=== PATIENT | female | born 1985 | race Hispanic/Latino ===

== ENCOUNTER 2017-08-08 16:12 | Emergency (ER) | payer SELFPAY ==
[~2017-08-08 16:12] MED LIST: ISOVUE-370 76%-LOCM 1 ML ONE; Iopamidol 370 76% 50 ML VIAL FS ONE
[2017-08-08 16:55] LABS: #Basophils 0.1 thou/uL (0.0-0.2); #Eosinphils 0.4 thou/uL (0.0-0.7); #Monocytes 0.5 thou/uL (0.11-0.59); #Neutrophils 5.4 thou/uL (1.40-6.50); %Eosinophils 4.9 % (0.0-10.0); %Lymphocytes 24.3 % (21.0-51.0); %Monocytes 5.8 % (0.0-10.0); Hemoglobin 14.1 g/dL (12.0-16.0); Mean Corpuscular HGB CONC 34.4 g/dL (32.0-36.0); Mean Corpuscular Hemoglobin 30.6 pg (27.0-31.0); Mean Corpuscular Volume 88.9 fL (78.0-98.0); Mean Platelet Volume 7.9 fL (7.4-10.4); Platelet Count 237 thou/uL (130-400); RBC Distribution Width 11.4 % (11.5-14.5); Red Blood Cell (RBC) Count 4.62 mill/uL (4.20-5.40); White Blood Cell (WBC) Count 8.4 thou/uL (4.8-10.8)
[2017-08-08 17:09] LABS: ALT (SGPT) 24 U/L (8-55); AST (SGOT) 22 U/L (5-34); Albumin 4.2 g/dL (3.5-5.0); Alkaline Phosphatase 71 U/L (40-150); Anion Gap 12 mmol/L (10-20); BUN (Urea Nitrogen) 9 mg/dL (7.0-18.7); Calc. Creatinine Clearance 0 mL/min (70-130); Carbon Dioxide 27 mmol/L (22-29); Chloride 105 mmol/L (98-107); Estimated GFR-MDRD 84; Glucose 97 mg/dL (70-105); Potassium 3.6 mmol/L (3.5-5.1); Protein, Total 7.2 g/dL (6.0-8.3); Sodium 140 mmol/L (136-145)
[2017-08-08] MEDS ORDERED: Morphine 10 MG/ML VIAL ONE (17:33)
[2017-08-08] MEDS ORDERED: Ondansetron HCl/PF 4 MG/2 ML Vial ONE (17:33)
[2017-08-08 18:00] LABS: Bilirubin Negative (Negative); Blood, Urine Moderate (Negative); Clarity CLEAR (Clear); Glucose, Urine (Dipstick) Negative (Negative); Leukocyte Small (Negative); Nitrite Negative (Negative); Protein, Urine (Dipstick) Negative (Neg-Trace); Specific Gravity, Urine 1.018 (1.002-1.036); Urobilinogen 0.2 mg/dL (0.2-1.0); pH, Urine 5.5 (5.0-9.0)
[2017-08-08 18:02] LABS: Bacteria/HPF None Seen HPF (None Seen); Hyaline Casts/LPF 0-3 HYALINE CAST LPF (0-3 Hyaline); Squamous Epithelial 0-3 HPF (0-3)
[2017-08-08 18:04] LABS: Pregnancy Test - Urine (BHCG) Negative (Negative); Pregu Control Background? CLEAR/WHITE (CLR/WHITE); Pregu Control Bar Appear? YES (CONTROL BAR); Specific Gravity 1.018 (1.002-1.036)
[2017-08-08] MEDS ORDERED: Ketorolac Tromethamine 30 MG/ML VIAL ONE (18:15)
--- NOTE | 2017-08-08 18:58 | ULT ---
ULTRASOUND GALLBLADDER RIGHT UPPER QUADRANT 08/08/17 HISTORY: Right upper quadrant pain. COMPARISON: None. FINDINGS: Real time mc scale and color evaluation of the right upper quadrant of the abdomen was performed. The visualized portions of the pancreas are unremarkable. Liver measures 15 cm in length. Gallbladder wall thickness is normal. No pericholecystic fluid. No cholelithiasis. No gallbladder dis tention. Sonographic Fernandez's sign is positive. Right kidney measures 10.3 x 4.2 x 5 cm without mass, hydronephrosis or abnormal calcifications. IMPRESSION: Unremarkable examination of the abdomen. No evidence of cholelithiasis or cholecystitis. POS: [facility]
--- NOTE | 2017-08-08 20:39 | CT ---
CT ABDOMEN AND PELVIS WITH CONTRAST: 08/08/17 HISTORY: Abdominal pain. COMPARISON: Gallbladder ultrasound same day. FINDINGS: Lung bases are clear. No pericardial effusion. Gallbladder is normal as well as the liver and spleen. The appendix is visualized and is normal. No dilated loops or large or small bowel. Low grade diverticular disease sigmoid colon without evidence of active inflammation. Mild dilatation of the gonadal vessels bilaterally. IMPRESSION: The aortoiliac contour is normal. No retroperitoneal adenopathy. No osseous abnormality. IMPRESSION: No acute intra-abdominal abnormality. Normal appendix. POS: [facility]
[2017-08-08] MEDS ORDERED: cefTRIAXone\\ROCEPHIN 2 GM VIAL ONE (21:15)
== END 2017-08-08 22:14 | disposition home or self-care (01) ==
LOC: ERS 16:12
DX: N39.0 Urinary tract infection, site not specified (principal); R10.11 Right upper quadrant pain
CPT/HCPCS: 36415; 74177; 76705; 80053; 81003; 81015; 81025; 83690; 85025; 87086; 96361; 96365; 96375; J0696; J1885; J2270; J2405

== ENCOUNTER 2018-05-14 09:40 | Outpatient (CLI) | payer OTHER ==
--- NOTE | 2018-05-14 10:35 | ULT ---
FUltrasound obstetrical complete: DATE: 05/14/2018 HISTORY: 33-year-old female Z34.82, encounter for supervision of otherwise normal in [facility] "Comments: Complete anatomy, size and dates and cervical length" FINDINGS: number:Sharif lie:Transverse with head to maternal left Maternal cervix:6.5 cm. Closed. Placenta:Posterior.. No placenta previa. Amniotic fluid: Subjectively normal. ARLEN was not measured. heart rate:142 bpm. The following anatomy is visualized without evidence of anomalies: Head, cerebellum, lateral ventricles, four-chamber heart, stomach, kidneys, cord insertion, bladder, cervical spine, thoracic spine, lumbar spine, sacrum, nose and lips, upper extremities, lower extreme venous, and three-vessel cord. biometry: BPD: 5.2 cm: 21 w 6 d HC: 19.0 cm: 21 w 2 d AC:16.1 cm: 21 w 2 d FL:3.6 cm: 21 w 3 d Average ultrasound age: 21 w 4 Estimated date of delivery: 09/20/2018 Estimated weight: 413 g +/- 60 g IMPRESSION: 1) 2nd trimester intrauterine gestation. 2) estimated gestational age of: 21 weeks 4 days 3) lie:Transverse 4) no anatomic abnormality identified.
== END 2018-05-14 09:41 | disposition home or self-care (01) ==
LOC: BICULT 09:40
PROVIDERS: ATTEND Family Medicine
DX: Z34.82 Encounter for supervision of other normal pregnancy, second trimester (principal); Z3A.21 21 weeks gestation of pregnancy
CPT/HCPCS: 76805

== ENCOUNTER 2018-09-03 02:03 | Day surgery (SDC) | payer OTHER ==
[2018-09-03 02:39] VITALS: BMI 34.0
[2018-09-03] MEDS ORDERED: hydrALAZINE 20 MG/ML VIAL SLOW IVP PRN (05:18)
--- NOTE | 2018-09-03 05:50 | ER ---
DATE OF SERVICE: 09/03/2018 TIME OF SERVICE: 05:15. PRESENTING COMPLAINT: Contractions at 37 weeks' gestation. HISTORY OF PRESENT ILLNESS: Ms. Paz is a 33-year-old, G3, P2, at 37 and 4 weeks gestation by stated DEDRA, who sees Dr. Jayant Arreguin. She presents complaining of contractions. She denies rupture of membranes. She reports active fetus. She presents for labor check. CONTINUOUS IMPROVEMENT CONSULTANT HISTORY: Antepartum record not present on the unit. The patient reports that she has had 2 previous spontaneous vaginal deliveries. Spontaneous vaginal delivery in 2009 involved with hemorrhage and spontaneous vaginal delivery in 2014 involved with -induced hypertension. Otherwise, she reports uncomplicated pregnancies. PAST MEDICAL HISTORY: None. PAST SURGICAL HISTORY: None. ALLERGIES: DENIES. MEDICATIONS: vitamins. SOCIAL HISTORY: Denies tobacco, alcohol or IV drug use. FAMILY HISTORY: Noncontributory. REVIEW OF SYSTEMS: Noncontributory. PHYSICAL EXAMINATION: GENERAL: female, resting comfortably. VITAL SIGNS: Pulse 65, blood pressure 122/71, temperature 97.6, and respirations 18. HEENT: Within normal limits. LUNGS: Clear to auscultation bilaterally. HEART: Regular rate and rhythm. ABDOMEN: Soft and nontender. No rebound or guarding. No CVA tenderness noted. Fundal height 37 cm. FHTs 120s to 140s. VULVA: Without lesions. VAGINA: Without discharge. CERVICAL EXAM: 225, -3, cephalic by RN. EXTREMITIES: No clubbing, cyanosis or edema. The patient was presented and had an initial category 1 heart rate tracing. She was allowed to walk for 2 hours and rechecked. At the end of 2 hours, she was noted to have an unchanged cervix. At this point in time, she reports that her contractions are gone from every 3 minutes to q.6 to 8 minutes. This was confirmed by electronic monitoring. IMPRESSION: 37 to 38 weeks gestation, category 1 heart rate tracing, no evidence of labor. PLAN: Discharge home. ER precautions. The patient is to keep scheduled followup with Dr. Arreguin today. Job ID: [id number]
== END 2018-09-03 05:20 | disposition home or self-care (01) ==
LOC: L&D/OP 02:03
PROVIDERS: ATTEND Family Medicine
DX: O47.1 False labor at or after 37 completed weeks of gestation (principal); Z3A.37 37 weeks gestation of pregnancy
CPT/HCPCS: 99283

== ENCOUNTER 2018-09-06 10:10 | Day surgery (SDC) | payer OTHER ==
[2018-09-06 10:58] VITALS: BMI 34.7
--- NOTE | 2018-09-06 13:15 | ULT ---
ULTRASOUND BIOPHYSICAL PROFILE: DATE: 09-06-18 HISTORY: 33-year-old female with abnormal nonstress test. FINDINGS: breathin tone: 2 movement: 2 Amniotic fluid volume: 2 hear rate: 149 bpm lie: Cephalic Placenta: Posterior ARLEN: 14 cm IMPRESSION: Normal biophysical profile score of 8/8, excluding the non-stress test. jn [] POS: [facility]
== END 2018-09-06 12:50 | disposition home or self-care (01) ==
LOC: L&D/OP 10:10
PROVIDERS: ATTEND Family Medicine
DX: O36.8130 Decreased fetal movements, third trimester, not applicable or unspecified (principal); Z3A.37 37 weeks gestation of pregnancy
CPT/HCPCS: 59025; 76819

== ENCOUNTER 2018-09-07 00:48 | Inpatient (IN) | payer MEDICAID, OTHER, SELFPAY ==
[2018-09-07 01:12] VITALS: BMI 34.7
[2018-09-07] MEDS ORDERED: Fentanyl 4 mcg/Bup 0.1% Cadd 100 ML ONE (01:25)
[2018-09-07] MEDS ORDERED: NS / Oxytocin 40 units/1000ml 1,000 ML ONE ×2 (01:26→05:25)
[2018-09-07] MEDS ORDERED: Lidocaine 1% (PF) 30 ML VIAL ONE (01:26)
[2018-09-07 01:33] LABS: Hemoglobin 13.3 g/dL (12.0-16.0); Mean Corpuscular HGB CONC 34.6 g/dL (32.0-36.0); Mean Corpuscular Hemoglobin 30.2 pg (27.0-31.0); Mean Corpuscular Volume 87.4 fL (78.0-98.0); Platelet Count 191 thou/uL (130-400); RBC Distribution Width 11.8 % (11.5-14.5); Red Blood Cell (RBC) Count 4.39 mill/uL (4.20-5.40); White Blood Cell (WBC) Count 13.9 thou/uL (4.8-10.8)
[2018-09-07 02:11] LABS: HBSAg Index 0.36 S/CO (0-0.99); Hep B Surf Ag Non-Reactive S/CO (NonReactive)
[2018-09-07] MEDS ORDERED: ePHEDrine/0.9% NaCl/PF SYRINGE 50 mg/10 ml SLOW IVP PRN (02:13)
[2018-09-07] MEDS ORDERED: Lactated Ringer's 500 ML IV PRN (02:13)
[2018-09-07] MEDS ORDERED: Naloxone HCl 0.4 mg/ml Vial IVP PRN ×2 (02:13)
[2018-09-07] MEDS ORDERED: Promethazine HCl 25 MG/ML VIAL IM PRN (02:13)
[2018-09-07] MEDS ORDERED: Ondansetron PF 4 MG/2 ML Vial IVP PRN (02:13)
[2018-09-07] MEDS ORDERED: Acetaminophen 325 MG TAB PO PRN (02:13)
[2018-09-07] MEDS ORDERED: diphenhydrAMINE 50 MG/ML VIAL IVP PRN (02:13)
[2018-09-07] MEDS ORDERED: Communication Order-Pharmacy FS SCH (02:15)
[2018-09-07] MEDS ORDERED: Fentanyl 4 mcg/Bupivacaine 0.1% Cassette 100 ML EPIDURAL SCH (02:15)
[2018-09-07 03:49] LABS: Syphilis Antibody Nonreactive (Nonreactive); Syphilis Antibody Index 0.06 S/CO (<1.00 Non-Reactive)
--- NOTE | 2018-09-07 04:09 | PDOC.OPDEL ---
OB Operative/Delivery Note Delivery Dr/Surgeon: Kimi Pre-Delivery Diagnosis: active labor Procedure/Post Delivery Dx: spontaneous vaginal delivery Weeks gestation: 38 Anesthesia: epidural - Additional Findings/Plan Placenta delivered: spontaneous Repaired Obstetrical Laceration: periurethral Estimated blood loss: 250 Compilations/Other Findings: Precip delivery of viable male. Apgars 8/9. Very small bilateral vaginal lacs repaired w/ 2-0 chromic, small right periurethral did not require repair. Post delivery plan: routine recovery
[2018-09-07] MEDS ORDERED: Milk Of Magnesia 30 ML UDCUP PO PRN (06:24)
[2018-09-07] MEDS ORDERED: NS / Oxytocin 40 units/1000ml 1,000 ML IV SCH (06:24)
[2018-09-07] MEDS ORDERED: Bisacodyl 10 MG SUPP PR PRN (06:24)
[2018-09-07] MEDS ORDERED: Acetaminophen/Codeine 30-300mg Tablet PO PRN ×2 (06:24)
[2018-09-07] MEDS ORDERED: Adacel (T-DAP) 0.5 ML SYRINGE IM ONE (06:24)
[2018-09-07] MEDS: Ferrous Sulfate 325 MG TAB PO SCH ×2 (08:50→18:49)
[2018-09-07] MEDS: Ibuprofen 800 MG TAB PO SCH ×2 (08:59→16:46)
[2018-09-07] MEDS: Docusate Calcium (SURFAK) 240 MG CAP PO SCH ×2 (08:59→21:10)
[2018-09-07] MEDS ORDERED: Benzocaine-Menthol 82.5 ML CAN TOP PRN (21:15)
[2018-09-07] MEDS ORDERED: Lanolin Ointment 7 GM TUBE TOP PRN (21:16)
[2018-09-08] MEDS: Ibuprofen 800 MG TAB PO SCH ×3 (00:16→16:19)
[2018-09-08 06:45] LABS: Hemoglobin 11.6 g/dL (12.0-16.0)
[2018-09-08] MEDS: Docusate Calcium (SURFAK) 240 MG CAP PO SCH (09:03)
[2018-09-08] MEDS: Ferrous Sulfate 325 MG TAB PO SCH ×2 (09:12→17:24)
[2018-09-08] MEDS ORDERED: Bupivacaine/Epinephrine 0.25% 30 ML VIAL ONE (11:11)
[2018-09-08 12:48] VITALS: BP 114/61; TEMP 98.1
== END 2018-09-08 17:15 | disposition home or self-care (01) | DRG 807 ==
LOC: L&D/OP 00:48 → L&D 01:08 → 3SW 06:23
PROVIDERS: ADMIT Family Medicine; ATTEND Family Medicine
PROC: 10E0XZZ Delivery of Products of Conception, External Approach (ICD-10-PCS; principal; 2018-09-07)
PROC: 0KQM0ZZ Repair Perineum Muscle, Open Approach (ICD-10-PCS; 2018-09-07)
DX: O71.82 Other specified trauma to perineum and vulva (principal); Z37.0 Single live birth; Z3A.37 37 weeks gestation of pregnancy
CPT/HCPCS: 36415; 51702; 62272; 85014; 85018; 85027; 86780; 86850; 86900; 86901; 87340; 99285; J2001